=== PATIENT | male | born 1985 | race African-American/Black ===

== ENCOUNTER 2016-09-14 06:48 | Emergency (ER) | payer SELFPAY ==
[2016-09-14 06:58] VITALS: BP 126/87
[2016-09-14] MEDS ORDERED: Sodium Chloride 0.9% 10 ML Syringe FLUSH PRN (07:26)
[2016-09-14] MEDS ORDERED: Ondansetron 4 MG/2 ML SDV IVPUSH ONE (07:26)
[2016-09-14] MEDS ORDERED: Sodium Chloride 0.9% 1,000 ML IV STA (07:26)
[2016-09-14] MEDS ORDERED: HYDROmorphone 1 MG/ML Syringe IVPUSH ONE (07:28)
--- NOTE | 2016-09-14 07:52 | EDM.PDOC ---
ED HPI GENERAL MEDICAL PROBLEM - General Chief Complaint: Abdominal Pain Stated Complaint: FLANK PAIN Time Seen by Provider: 09/14/16 06:55 Source of Information: Reports: Patient History Limitations: Reports: No Limitations - History of Present Illness INITIAL COMMENTS - FREE TEXT/NARRATIVE: The patient presents with left flank pain and left sided abdominal pain. This has been going on for about 3 days. He has some nausea with it but no vomiting. He has no diarrhea, dysuria or hematuria. He has no fever, chills, cough, chest pain, or shortness of breath. He has no history of kidney stones. He says this past weekend he was camping in the heat and did not drink much fluids. Onset: Gradual Duration: Day(s): (3) Location: Reports: Abdomen, Back (Left flank) Quality: Reports: Sharp Severity: Moderate Improves with: Reports: None Worsens with: Reports: Breathing Associated Symptoms: Reports: Nausea/Vomiting. Denies: Chest Pain, Cough, Fever /Chills, Shortness of Breath Left Flank Pain Score (Numeric/FACES): 6 - Related Data Allergies Allergy/AdvReac Type Severity Reaction Status Date / Time beeswax Allergy Swelling Verified 09/14/16 06:58 Home Meds: Home Meds Ondansetron [Zofran ODT] 4 mg PO Q6H PRN #20 tab.dis 09/14/16 [Rx] Past Medical History - Past Health History Medical/Surgical History: Denies Medical/Surgical History Social & Family History - Tobacco Use Smoking Status *Q: Current Every Day Smoker Years of Tobacco use: 15 Packs/Tins Daily: 0.2 - Caffeine Use Caffeine Use: Reports: Coffee - Recreational Drug Use Recreational Drug Use: No - Living Situation & Occupation Living situation: Reports: Occupation: Unemployed ED ROS GENERAL - Review of Systems Review Of Systems: See Below Constitutional: Reports: No Symptoms HEENT: Reports: No Symptoms Respiratory: Reports: No Symptoms Cardiovascular: Reports: No Symptoms Endocrine: Reports: No Symptoms GI/Abdominal: Reports: Abdominal Pain, Nausea. Denies: Diarrhea, Vomiting : Reports: Flank Pain (Left) Musculoskeletal: Reports: No Symptoms Skin: Reports: No Symptoms ED EXAM, GI/ABD - Physical Exam Exam: See Below Exam Limited By: No Limitations General Appearance: Alert, No Apparent Distress Ears: Normal External Exam Nose: Normal Inspection Head: Atraumatic, Normocephalic Neck: Normal Inspection Respiratory/Chest: No Respiratory Distress, Lungs Clear, Normal Breath Sounds Cardiovascular: Regular Rate, Rhythm, No Edema, No Murmur GI/Abdominal: Soft, Non-Tender, No Organomegaly, No Mass Back Exam: Normal Inspection Extremities: Normal Inspection Course - Vital Signs Last Recorded V/S: Last Vital Signs Temp 98.2 F 09/14/16 06:54 Pulse 89 09/14/16 06:54 Resp 18 09/14/16 06:54 BP 126/87 09/14/16 06:54 Pulse Ox 100 09/14/16 06:54 - Orders/Labs/Meds Orders: Active Orders 24 hr Category Date Time Status Peripheral IV Care [RC] . DIRECTED Care 09/14/16 07:27 Active Sodium Chloride 0.9% [Saline Flush] Med 09/14/16 07:26 Active 10 ml FLUSH ASDIRECTED PRN ED Antiemetic Medication Reflex [OM.PC] Stat Oth 09/14/16 07:27 Ordered Peripheral IV Insertion Adult [OM.PC] Stat Ot 09/14/16 07:26 Ordered Medication Orders Sodium Chloride (Saline Flush) 10 ml FLUSH ASDIRECTED PRN PRN Reason: Keep Vein Open Last Admin: 09/14/16 07:41 Dose: 10 ml Labs: Laboratory Tests 09/14/16 09/14/16 09/14/16 Range/Units 07:00 07:00 07:00 WBC 9.41 H (4.23-9.07) K/mm3 RBC 5.19 (4.63-6.08) M/mm3 Hgb 15.6 (13.7-17.5) gm/L Hct 46.6 (40.1-51.0) % MCV 89.8 (79.0-92.2) fl MCH 30.1 (25.7-32.2) pg MCHC 33.5 (32.2-35.5) g/dl RDW Std Deviation 42.6 (35.1-43.9) fL Plt Count 309 (163-337) K/mm3 MPV 8.9 L (9.4-12.3) fl Neut % (Auto) 65.4 (34.0-67.9) % Lymph % (Auto) 20.8 L (21.8-53.1) % Barber % (Auto) 11.3 (5.3-12.2) % Eos % (Auto) 2.3 (0.8-7.0) Baso % (Auto) 0.1 (0.1-1.2) % Neut # (Auto) 6.15 H (1.78-5.38) K/mm3 Lymph # (Auto) 1.96 (1.32-3.57) K/mm3 Barber # (Auto) 1.06 H (0.30-0.82) K/mm3 Eos # (Auto) 0.22 (0.04-0.54) K/mm3 Baso # (Auto) 0.01 (0.01-0.08) K/mm3 Sodium 140 (136-145) mEq/L Potassium 3.8 (3.5-5.1) mEq/L Chloride 104 (98-107) mEq/L Carbon Dioxide 28 (21-32) mEq/L Anion Gap 11.8 (5-15) BUN 9 (7-18) mg/dL Creatinine 1.2 (0.7-1.3) mg/dL Est Cr Clr Drug Dosing TNP Estimated GFR (MDRD) > 60 (>60) mL/min BUN/Creatinine Ratio 7.5 L (14-18) Glucose 106 (74-106) mg/dL Calcium 8.3 L (8.5-10.1) mg/dL Total Bilirubin 0.4 (0.2-1.0) mg/dL AST 24 (15-37) U/L ALT 43 (16-63) U/L Alkaline Phosphatase 92 (46-116) U/L Total Protein 7.3 (6.4-8.2) g/dl Albumin 3.4 (3.4-5.0) g/dl Globulin 3.9 gm/dL Albumin/Globulin Ratio 0.9 L (1-2) Lipase 67 L (73-393) U/L Urine Color Yellow (Yellow) Urine Appearance Clear (Clear) Urine pH 6.0 (5.0-8.0) Ur Specific [place] > or = 1.030 (1.005-1.030) Urine Protein 1+ H (Negative) Urine Glucose (UA) Negative (Negative) Urine Ketones Negative (Negative) Urine Occult Blood Negative (Negative) Urine Nitrite Negative (Negative) Urine Bilirubin Negative (Negative) Urine Urobilinogen 1.0 (0.2-1.0) Ur Leukocyte Esterase Negative (Negative) Urine RBC Not seen (0-5) /hpf Urine WBC 0-5 (0-5) /hpf Ur Epithelial Cells Not seen (0-5) /hpf Urine Bacteria Few (FEW) /hpf Urine Mucus Many H (FEW) /hpf Meds: Medications Generic Name Dose Route Start Last Admin Trade Name Freq PRN Reason Stop Dose Admin Sodium Chloride 10 ml 09/14/16 07:26 09/14/16 07:41 Saline Flush FLUSH 10 ml ASDIRECTED PRN Administration Keep Vein Open Discontinued Medications Generic Name Dose Route Start Last Admin Trade Name Freq PRN Reason Stop Dose Admin Hydromorphone HCl 1 mg 09/14/16 07:28 09/14/16 07:40 Dilaudid IVPUSH 09/14/16 07:29 1 mg ONETIME ONE Administration Sodium Chloride 1,000 mls @ 1,000 mls/hr 09/14/16 07:26 09/14/16 07:40 Normal Saline IV 09/14/16 08:25 1,000 mls/hr .BOLUS STA Administration Ondansetron HCl 4 mg 09/14/16 07:26 09/14/16 07:40 Zofran IVPUSH 09/14/16 07:27 4 mg ONETIME ONE Administration - Re-Assessments/Exams Free Text/Narrative Re-Assessment/Exam: 09/14/16 07:51 I ordered an IV NS 1L bolus, zofran 4mg IV, dilaudid 1g IV, labs, UA and CT of his abdomen and pelvis. 09/14/16 08:47 His CBC and CMP look good. His UA shows no UTI. The CT of his abdomen and pelvis shows no kidney stones. He feels better after the fluids. He may have been a little dehydrated. I will give him some zofran and encourage him to drink more water. Departure - Departure Time of Disposition: 08:50 Disposition: Home, Self-Care 01 Condition: good Clinical Impression: Nausea, Left flank pain, Dehydration - Discharge Information Prescriptions: Ondansetron [Zofran ODT] 4 mg PO Q6H PRN #20 tab.dis PRN Reason: Nausea/Vomiting Referrals: PCP,None [Primary Care Provider] - Zeinab White [Physician] - Forms: ED Department Discharge Additional Instructions: Drink plenty of water. Try to drink about 8 eight ounce glasses per day or enough to make your urine a pale yellow. Take the zofran as needed for nausea. Please return if you are worse. - My Orders Last 24 Hours: My Active Orders 09/14/16 07:26 Sodium Chloride 0.9% [Saline Flush] 10 ml FLUSH ASDIRECTED PRN Peripheral IV Insertion Adult [OM.PC] Stat 09/14/16 07:27 Peripheral IV Care [RC] . DIRECTED ED Antiemetic Medication Reflex [OM.PC] Stat - Assessment/Plan Last 24 Hours: My Active Orders 09/14/16 07:26 Sodium Chloride 0.9% [Saline Flush] 10 ml FLUSH ASDIRECTED PRN Peripheral IV Insertion Adult [OM.PC] Stat 09/14/16 07:27 Peripheral IV Care [RC] . DIRECTED ED Antiemetic Medication Reflex [OM.PC] Stat
--- NOTE | 2016-09-14 08:21 | CT ---
CT abdomen and pelvis Technique: Multiple axial sections were obtained from above the kidneys inferiorly through the pubic symphysis. Intravenous contrast was not utilized. Study has been performed as a ureteral stone protocol. Findings: Kidneys show no abnormal calcifications. No ureteral dilatation or ureteral stone is seen. There is a calcification next to the posterior left bladder which is close to the UVJ but felt to lie outside the ureter. In addition if this was a ureteral stone I would expect some dilatation of the left ureter which is not present. Minimal portions of the lung bases seen are clear. Lower portions of the liver and spleen appear within normal limits. Adrenal glands show no nodule. Pancreas is within normal limits. Gallbladder shows no calcified gallstones. Aorta shows no aneurysmal dilatation. No retroperitoneal adenopathy or mesenteric abnormalities are seen. Appendix is seen which appears to be normal. No pelvic mass or adenopathy is seen. No free fluid or inflammatory change is seen. No bowel dilatation is identified. Mild increased stool is noted within the colon. Bone window settings were reviewed which appear within normal limits for the patient's age. Impression: 1. Calcification with thin the left side of the pelvis. This lies close to the UVJ but felt not to be within the ureter but next to the ureter. This is also felt unlikely to represent a ureteral stone as no ureteral dilatation is seen. 2. Mild increased stool noted within the colon. 3. Other portions of the noncontrast CT study of the abdomen and pelvis performed as a ureteral stone protocol appear unremarkable. Diagnostic code #2
== END 2016-09-14 09:05 | disposition home or self-care (01) ==
LOC: JD.ED 06:48
DX: E86.0 Dehydration (principal); R11.0 Nausea; R10.9 Unspecified abdominal pain; F17.210 Nicotine dependence, cigarettes, uncomplicated; Z91.030 Bee allergy status
CPT/HCPCS: 36415; 74176; 80053; 81001; 83690; 85025; 96361; 96374; 96375; 99284; J1170; J2405; J7040; J7050

== ENCOUNTER 2017-02-08 13:37 | Emergency (ER) | payer SELFPAY ==
[2017-02-08 13:57] VITALS: BP 128/89
--- NOTE | 2017-02-08 14:45 | EDM.PDOC ---
ED HPI GENERAL MEDICAL PROBLEM - General Chief Complaint: Upper Extremity Injury/Pain Stated Complaint: L SHOULDER INJURY 2 DAYS AGO Time Seen by Provider: 02/08/17 14:33 Source of Information: Reports: Patient History Limitations: Reports: No Limitations - History of Present Illness INITIAL COMMENTS - FREE TEXT/NARRATIVE: Patient is a 31-year-old male presents ED complaining of left shoulder joint pain. Patient states while riding a skateboard 2 days ago he fell landing directly on his left shoulder. Pain has been isolated to the the a/c joint worsened with movement and palpation. He is able to lift his arm above his head with pain localized to a/c joint. No sensory/motor deficits distally. No prior history of injury to the a/c joint or dislocation left shoulder. No clavicle pain. Has not taken any [id number] medications for the discomfort. Has been utilizing ice for pain with some relief. Left Shoulder Pain Score (Numeric/FACES): 1 - Related Data Allergies Allergy/AdvReac Type Severity Reaction Status Date / Time bee venom protein (honey bee) Allergy Swelling Verified 02/08/17 13:57 Home Meds: Home Meds . [No Known Home Meds] 02/08/17 [History] Past Medical History - Past Health History Medical/Surgical History: Denies Medical/Surgical History - Past Surgical History HEENT Surgical History: Reports: Tonsillectomy Social & Family History - Family History Family Medical History: Noncontributory - Tobacco Use Smoking Status *Q: Current Every Day Smoker Years of Tobacco use: 5 Packs/Tins Daily: 0.5 - Caffeine Use Caffeine Use: Reports: Coffee - Recreational Drug Use Recreational Drug Use: Yes Drug Use in Last 12 Months: Yes Recreational Drug Type: Reports: Marijuana/Hashish - Living Situation & Occupation Living situation: Reports: Occupation: Unemployed Review of Systems - Review of Systems Review Of Systems: ROS reveals no pertinent complaints other than HPI. ED EXAM, GENERAL - Physical Exam Exam: See Below Exam Limited By: No Limitations General Appearance: Alert, WD/WN, No Apparent Distress Ears: Hearing Grossly Normal Nose: Normal Inspection Throat/Mouth: Normal Voice, No Airway Compromise Neck: Normal Inspection, Supple Respiratory/Chest: No Respiratory Distress, Lungs Clear, Normal Breath Sounds, No Accessory Muscle Use, Chest Non-Tender Cardiovascular: Normal Peripheral Pulses, Regular Rate, Rhythm Peripheral Pulses: 2+: Radial (L) GI/Abdominal: Normal Bowel Sounds, Soft, Non-Tender, No Organomegaly Extremities: Normal Range of Motion, Other (mild swelling to the left a/c joint with pin point tenderness noted. Patient is able to move his left arm above his shoulder with some discomfort localized to the left before meals joint. No sensory/motor deficits distally. No other complaints.) Neurological: Alert, Oriented, Normal Cognition, No Motor/Sensory Deficits Psychiatric: Normal Affect, Normal Mood Skin Exam: Warm, Dry, Intact, Normal Color Course - Vital Signs Last Recorded V/S: Last Vital Signs Temp 98.2 F 02/08/17 13:52 Pulse 98 02/08/17 13:52 Resp 16 02/08/17 13:52 BP 128/89 02/08/17 13:52 Pulse Ox 100 02/08/17 13:52 - Re-Assessments/Exams Free Text/Narrative Re-Assessment/Exam: Will order x-ray of the left before meals joint with and without weights. X-ray of the left a/C joint did not reveal any abnormalities. Grade 1 sprain. Discharged patient home with instructions as documented. Departure - Departure Time of Disposition: 15:38 Disposition: Home, Self-Care 01 Condition: Good Clinical Impression: Acromioclavicular (joint) (ligament) sprain Qualifiers: Encounter type: initial encounter Laterality: left Qualified Code(s): S43.52XA - Sprain of left acromioclavicular joint, initial encounter - Discharge Information Instructions: Acromioclavicular Separation With Rehab-[facility] Referrals: PCP,None [Primary Care Provider] - Forms: ED Department Discharge Additional Instructions: As discussed x-ray of the left before meals joint did not reveal any acute abnormalities. Etiology current complaint is before meals joint sprain. Treatment is symptomatic care including ice to affected area as needed. Ibuprofen and Tylenol in alternating fashion for pain. Refrain from any activities that cause worsening pain. Follow-up with PCP in the next 2 weeks if symptoms have not completely resolved. Return to the ED for any new or worsening symptoms.
--- NOTE | 2017-02-09 08:50 | CR ---
Acromioclavicular joints: AP view of the acromioclavicular joints were obtained with and without weights. Acromioclavicular joints appear normal in alignment. No findings of acromioclavicular separation are seen. No fracture or other abnormality is identified. Impression: 1. No abnormality is identified on acromioclavicular joint exam. Diagnostic code #1
== END 2017-02-08 16:02 | disposition home or self-care (01) ==
LOC: JD.ED 13:37
DX: S43.52XA Sprain of left acromioclavicular joint, initial encounter (principal); F17.210 Nicotine dependence, cigarettes, uncomplicated; Z91.030 Bee allergy status; V00.131A Fall from skateboard, initial encounter; Y93.51 Activity, roller skating (inline) and skateboarding
CPT/HCPCS: 73050-26; 73050-50; 99283

== ENCOUNTER 2017-08-13 12:25 | Emergency (ER) | payer BC ==
[2017-08-13 12:40] VITALS: BP 122/77
[2017-08-13] MEDS ORDERED: Cyclobenzaprine 10 MG Tab PO ONE ×2 (13:40→13:46)
[2017-08-13] MEDS ORDERED: Ibuprofen 800 MG Tab PO ONE (13:40)
--- NOTE | 2017-08-13 13:44 | EDM.PDOC ---
ED HPI GENERAL MEDICAL PROBLEM - General Chief Complaint: Back Pain or Injury Stated Complaint: BACK PAIN Time Seen by Provider: 08/13/17 13:00 Source of Information: Reports: Patient History Limitations: Reports: No Limitations - History of Present Illness INITIAL COMMENTS - FREE TEXT/NARRATIVE: Nii is a pleasant 32yo male patient presents ambulatory accompanied by his with complaints of right sided back pain starting sometime this morning. 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 He has never had problems with back pain. The pain is right sided and into his hip and upper lateral thigh. He denies radiculopathy but does note that his leg will "give out " randomly when walking and when pain to right buttock "grabs" him. No bowl or bladder dysfunction. No weakness to the foot. No acute injury such as fall or other accident. He does not stretch but has tried this morning unsuccessfully. He has taken tylenol with minimal relief of his discomfort. 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 [No Known Home Meds] 02/08/17 [History] Past Medical History - Past Health History Medical/Surgical History: Denies Medical/Surgical History - Past Surgical History HEENT Surgical History: Reports: Tonsillectomy Social & Family History - Family History Family Medical History: Noncontributory - Tobacco Use Smoking Status *Q: Current Every Day Smoker Years of Tobacco use: 8 Packs/Tins Daily: 0.5 - Caffeine Use Caffeine Use: Reports: Coffee - Recreational Drug Use Recreational Drug Use: No Drug Use in Last 12 Months: Yes Recreational Drug Type: Reports: Marijuana/Hashish - Living Situation & Occupation Living situation: Reports: Occupation: Unemployed ED ROS GENERAL - Review of Systems Review Of Systems: See Below Constitutional: Reports: No Symptoms HEENT: Reports: No Symptoms Respiratory: Reports: No Symptoms Cardiovascular: Reports: No Symptoms GI/Abdominal: Reports: No Symptoms : Reports: No Symptoms Musculoskeletal: Reports: Back Pain (see HPI) Neurological: Reports: No Symptoms ED EXAM,LOWER BACK PAIN/INJURY - Physical Exam Exam: See Below Exam Limited By: No Limitations General Appearance: Alert, WD/WN, No Apparent Distress Eye Exam: Bilateral Eye: EOMI, PERRL Ears: Normal External Exam, Hearing Grossly Normal Nose: Normal Inspection Throat/Mouth: Normal Inspection, Normal Voice, No Airway Compromise Head: Atraumatic, Normocephalic Neck: Normal Inspection Respiratory/Chest: No Respiratory Distress, Lungs Clear, Normal Breath Sounds Cardiovascular: Normal Peripheral Pulses, Regular Rate, Rhythm GI/Abdominal: Normal Bowel Sounds, Soft (Male) Exam: Deferred Rectal (Males) Exam: Deferred Back Exam: Normal Inspection, Decreased Range of Motion (forward flexion is very limited. SLR past 60 degrees is normal. ), Muscle Spasm (bilateral lower back, rt side worse than lt). No: Vertebral Tenderness Extremities: Normal Inspection, No Pedal Edema Neurological: Alert, Normal Mood/Affect, Normal Dorsiflexion, Normal Plantar Flexion, No Motor/Sensory Deficits, Oriented x 3 DTR - Lower Extremities: 2+: Knee (R), Knee (L), Ankle (R), Ankle (L) Psychiatric: Normal Affect, Normal Mood Skin Exam: Warm, Dry, Intact Course - Vital Signs Last Recorded V/S: Last Vital Signs Temp 97.0 F 08/13/17 12:35 Pulse 72 08/13/17 12:35 Resp BP 122/77 08/13/17 12:35 Pulse Ox 100 08/13/17 12:35 - Orders/Labs/Meds Meds: Medications Discontinued Medications Generic Name Dose Route Start Last Admin Trade Name Freq PRN Reason Stop Dose Admin Cyclobenzaprine HCl 10 mg 08/13/17 13:40 08/13/17 13:50 Flexeril PO 08/13/17 13:41 10 mg ONETIME ONE Administration Cyclobenzaprine HCl 10 mg 08/13/17 13:46 08/13/17 13:50 Flexeril PO 08/13/17 13:47 10 mg ONETIME ONE Administration Ibuprofen 800 mg 08/13/17 13:40 08/13/17 13:49 Motrin PO 08/13/17 13:41 800 mg ONETIME ONE Administration - Re-Assessments/Exams Free Text/Narrative Re-Assessment/Exam: 08/13/17 19:06 Long discussion with patient and re: back health, maintaining flexibility, recommend yoga/pilates, daily stretching and warmup prior to physical activity/ exercise. No xrays or imaging is needed today. Departure - Departure Time of Disposition: 13:41 Disposition: Home, Self-Care 01 Condition: Good Clinical Impression: Low back strain Qualifiers: Encounter type: initial encounter Qualified Code(s): S39.012A - Strain of muscle, fascia and tendon of lower back, initial encounter - Discharge Information Instructions: Back Injury Prevention, [id number], Muscle Strain, [id number] , Back Pain, Adult, [id number] Referrals: PCP,None [Primary Care Provider] - Forms: ED Department Discharge Additional Instructions: Take ibuprofen 3-4 tabs 3 times daily with food for the next 5 days then as needed Flexeril- muscle relaxant 3 times daily as needed Heat/ice 3-4 times daily x 20 minute sessions Stretching daily; yoga will be helpful -hamstring, hip flexors and psoas muscles can play into back pain post acute care nurse or massage therapy can be beneficial Return to ER or clinic if worsening or if other questions/concerns.
== END 2017-08-13 13:54 | disposition home or self-care (01) ==
LOC: JD.ED 12:25
DX: S39.012A Strain of muscle, fascia and tendon of lower back, initial encounter (principal); F17.210 Nicotine dependence, cigarettes, uncomplicated; Z91.030 Bee allergy status; Y93.67 Activity, basketball
CPT/HCPCS: 99283; A9270

== ENCOUNTER 2023-01-13 08:12 | Emergency (ER) | payer SELFPAY ==
[2023-01-13 09:47] LABS: CORONAVIRUS COVID-19 NAA NEGATIVE (NEGATIVE); INFLUENZA A NAA NEGATIVE (NEGATIVE); RESPIRATORY SYNCYTIAL VIR NAA NEGATIVE (NEGATIVE)
[2023-01-13 16:06] VITALS: BP 116/68; PULSE 87
== END 2023-01-13 10:00 | disposition home or self-care (01) ==
LOC: JD.ED 08:12
DX: J04.0 Acute laryngitis (principal); Z91.030 Bee allergy status; Z20.822 Contact with and (suspected) exposure to COVID-19
CPT/HCPCS: 0241U; 87651; 99283